=== PATIENT | female | born 2000 ===

== ENCOUNTER 2024-06-03 11:18 | Outpatient (CLI) | payer OTHER | END 2024-06-03 11:24 | disposition home or self-care (01) | LOC: PRENATAL 11:18 | PROVIDERS: ATTEND Obstetrics & Gynecology Maternal & Fetal Medicine | DX: O44.00 Complete placenta previa NOS or without hemorrhage, unspecified trimester (principal); Z3A.20 20 weeks gestation of pregnancy ==

== ENCOUNTER 2024-08-26 15:47 | Outpatient (CLI) | payer OTHER | END 2024-08-26 15:48 | disposition home or self-care (01) | LOC: PRENATAL 15:47 | PROVIDERS: ATTEND Obstetrics & Gynecology Maternal & Fetal Medicine | DX: O44.00 Complete placenta previa NOS or without hemorrhage, unspecified trimester (principal); O99.210 Obesity complicating pregnancy, unspecified trimester; Z3A.20 20 weeks gestation of pregnancy ==

== ENCOUNTER 2024-09-18 11:54 | Inpatient (IN) | payer OTHER ==
[~2024-09-18] VITALS: Ht 152.4 cm; Wt 70.8 kg
[2024-09-18 11:08] VITALS: BP 107/62
[2024-09-18] MEDS ORDERED: AMPICILLIN SODIUM 2,000 MG VIAL IV ONE (12:00)
[2024-09-18] MEDS ORDERED: RINGERS SOLUTION,LACTATED 1,000 ML IV SCH (12:00)
[2024-09-18 12:52] LABS: BASO % 0.4 % (0.1-1.2); EOS # 0.18 (0.04-0.54); EOS % 1.8 % (0.7-7.0); HEMATOCRIT 30.8 % (34.1-44.9); HEMOGLOBIN 10.3 g/dL (11.2-15.7); LYMPH # 1.56 (1.18-3.74); LYMPH % 15.6 % (19.3-53.1); MONO # 0.62 (0.24-0.82); MONO % 6.2 % (4.7-12.5); NEUT # 7.47 (1.56-6.13); NEUT % 74.6 % (34.0-71.1); PLATELET COUNT 272 K/uL (163-369); RED BLOOD COUNT 3.82 M/uL (3.93-5.22); RED CELL DISTRIBUTION WIDTH 13.4 % (11.6-14.4)
[2024-09-18] MEDS ORDERED: PRENATAL TABLE1 EAC1 (12:59)
[2024-09-18 15:27] VITALS: BP 103/66
[2024-09-18] MEDS ORDERED: AMPICILLIN SODIUM 1,000 MG VIAL IV SCH (16:00)
[2024-09-18 16:59] LABS: PH,URINE 6.5 (5.0-8.0); URINE APPEARANCE Clear; URINE BILIRRUBIN Negative (NEGATIVE); URINE BLOOD Negative; URINE COLOR Yellow; URINE GLUCOSE Negative (NEGATIVE); URINE KETONE 15 (NEGATIVE); URINE LEUKOCYTE Negative; URINE NITRATE Negative; URINE PROTEIN Negative (NEGATIVE)
[2024-09-18 17:03] LABS: URINE BACTERIA 210.5 uL (0.0-1933); URINE EPITHELIAL CELLS 29.9 uL (0.0-38.8); URINE RBC 14.5 uL (0.0-20.8); URINE WBC 11.5 uL (0.0-23.2)
[2024-09-18 17:15] LABS: URINE CAST 0.44 uL (0.0-1.40)
[2024-09-18 19:30] VITALS: BP 104/66
[2024-09-18 23:05] VITALS: BP 99/52
[2024-09-19 03:19] VITALS: BP 106/67
[2024-09-19 06:30] VITALS: BP 106/67; O2SAT 97
[2024-09-19 11:57] VITALS: BP 101/65; O2SAT 99
[2024-09-19] MEDS ORDERED: BETAMETHASONE ACETATE,SOD PHOS 30 MG/5 ML ML IM SCH (12:36)
[2024-09-19 15:04] VITALS: BP 97/160
[2024-09-19 19:30] VITALS: BP 103/67
[2024-09-19 23:20] VITALS: BP 102/56
[2024-09-20 07:31] VITALS: BP 106/66
[2024-09-20 11:15] VITALS: BP 103/64
[2024-09-20] MEDS ORDERED: BETAMETHASONE ACETATE,SOD PHOS 30 MG/5 ML ML IM SCH (12:00)
[2024-09-20 15:12] VITALS: BP 102/61
[2024-09-20 19:01] VITALS: BP 102/61
[2024-09-20 23:25] VITALS: BP 103/57
[2024-09-21 03:37] VITALS: BP 105/58
[2024-09-21 07:32] VITALS: BP 99/56
[2024-09-21 10:49] VITALS: BP 95/61
[2024-09-21] MEDS ORDERED: OXYTOCIN 10 UNITS/ML VIAL ONE (11:22)
[2024-09-21] MEDS ORDERED: ERYTHROMYCIN BASE OPHT 1GM EACH TUBE OP ONE (11:22)
[2024-09-21 11:48] LABS: INR 0.99; PARTIAL THROMBOPLASTIN TIME 21.4 SECONDS (22.0-34.0); PROTHROMBIN TIME 10.8 SECONDS (9.0-11.5)
[2024-09-21 12:18] LABS: ALBUMIN 2.7 gm/dL (3.4-5.0); BILIRUBIN TOTAL 0.67 mg/dL (0.3-1.2); CALCIUM 8.9 mg/dL (8.5-10.1); CREATININE SERUM 0.7 mg/dL (0.55-1.02); GFR 102.8; GLOBULINA 3.1 G/DL (2.4-3.5); POTASSIUM 3.98 mEq/L (3.5-5.1); TOTAL PROTEIN 5.8 gm/dL (6.4-8.2)
[2024-09-21] MEDS ORDERED: MORPHINE SULFATE 4 MG/ML CARTRIDGE IV PRN (13:00)
[2024-09-21 15:20] VITALS: BP 99/64
[2024-09-22] VITALS: BP 104/65
[2024-09-22 08:55] VITALS: BP 118/75
[2024-09-22] MEDS ORDERED: OxyCODONE HCL 5 MG TABLET (ROXICODONE) PO PRN (09:45)
[2024-09-22] MEDS ORDERED: ACETAMINOPHEN 325 MG TABLET PO PRN (09:45)
[2024-09-22 10:58] VITALS: BP 90/60
[2024-09-22 15:49] VITALS: BP 102/68
[2024-09-23 01:51] VITALS: BP 95/60
[2024-09-23 08:00] VITALS: BP 104/69
[2024-09-23 16:03] VITALS: BP 106/69
[2024-09-24 01:19] VITALS: BP 103/64
[2024-09-24 08:00] VITALS: BP 125/80
[2024-09-24 16:03] VITALS: BP 104/71
== END 2024-09-24 17:47 | disposition home or self-care (01) | DRG 786 ==
LOC: LDR 11:54 → OB/GYN 09-21 13:50
PROVIDERS: ADMIT Obstetrics & Gynecology Obstetrics; ATTEND Obstetrics & Gynecology Obstetrics
PROC: 4A1HXCZ Monitoring of Products of Conception, Cardiac Rate, External Approach (ICD-10-PCS; 2024-09-18)
PROC: BY4FZZZ Ultrasonography of Third Trimester, Single Fetus (ICD-10-PCS; 2024-09-19)
PROC: 10D00Z1 Extraction of Products of Conception, Low, Open Approach (ICD-10-PCS; principal; 2024-09-21 12:00)
DX: O42.013 Preterm premature rupture of membranes, onset of labor within 24 hours of rupture, third trimester (principal); O60.14X0 Preterm labor third trimester with preterm delivery third trimester, not applicable or unspecified; Z3A.36 36 weeks gestation of pregnancy; Z37.0 Single live birth